=== PATIENT | female | born 1985 | race Caucasian/White ===

== ENCOUNTER 2020-05-19 15:45 | Outpatient (CLI) | payer OTHER ==
[~2020-05-19 15:45] MED LIST: DOCU-131 PO; IBUP-1222 PO; OXYC1TAB14 PO
== END 2020-05-19 23:59 | disposition home or self-care (01) ==
LOC: CFH 15:45
PROVIDERS: ATTEND Internal Medicine Cardiovascular Disease
DX: I36.1 Nonrheumatic tricuspid (valve) insufficiency (principal); I47.1 Supraventricular tachycardia; R00.2 Palpitations
CPT/HCPCS: 93306